=== PATIENT | female | born 1965 | race Caucasian/White ===

== ENCOUNTER 2016-12-10 11:21 | Observation (INO) ==
--- NOTE | 2016-12-10 11:45 | Emergency Department Note ---
Disposition Clinical Impression: Chest pain, Obesity, Family history of coronary artery disease, Hypertension, Diabetes, Hyperlipidemia, Anxiety Disposition: Admitted As Inpatient Condition: Fair Referrals: Kristel York MD [Primary Care Provider] - Forms: ED Satisfaction Letter General Adult HPI - General Chief complaint: ED Chest Pain Stated complaint: CP Time Seen by Provider: 12/10/16 11:44 Source: patient Limitations: no limitations - History of Present Illness HPI Narrative: 50-year-old female reports to the emergency department at the advice of her primary care physician regarding chest pain and shortness of breath. The patient reports she had chest pain which began last evening while walking. She called her primary care physician today and they recommended she come to the ED. The patient also reports she did not sleep much last night and had persistent chest pain last night. She describes a pressure-like sensation in the mid sternum which really does not radiate to much. There has been no vomiting or diarrhea no abdominal pain no fever trauma or rash. No falls or injuries. No leg swelling or pain no coughing up blood. The patient has no personal history of coronary disease DVT PE or cancer. She reports a remote stress test which was negative. She does describe history of diabetes hypertension hyperlipidemia, she is a nonsmoker. No major family history of early coronary artery disease. There has been no leg swelling or pain or coughing up blood. There is no reported syncope. The patient describes significant anxiety. There is no history of augustina depressive features homicidality or suicidality. There is no history of fever or cough. No trouble walking talking hearing seeing or speaking or confusion or convulsion. No other complaints or concerns. Onset (ago): day(s) Pain Scale: 2 - Related Data Allergies Allergy/AdvReac Type Severity Reaction Status Date / Time acetaminophen [From Vicodin] Allergy Hives Verified 12/10/16 11:30 hydrocodone [From Vicodin] Allergy Hives Verified 12/10/16 11:30 Sulfa (Sulfonamide AdvReac Vomiting Verified 12/10/16 11:30 Antibiotics) All systems ED: reviewed and negative except as stated. Past Medical History - Past Medical History Medical history: Reports: diabetes, GERD, hyperlipidemia, hypertension, other Psychiatric history: Reports: depression - Social History Smoking Status: Never smoker Smokeless Tobacco Status: No Alcohol use: Reports: none Drug use: Reports: none Physical Exam - General Limitations: no limitations General appearance: alert, anxious - Head Head exam: atraumatic, normocephalic, normal inspection - Eye Eye exam: Present: normal appearance, PERRL, EOMI. Absent: scleral icterus, conjunctival injection, miosis, mydriasis - ENT ENT exam: normal exam, normal oropharynx, mucous membranes moist, TM's normal bilaterally, normal external ear exam - Neck Neck exam: Present: normal inspection, full ROM, trachea midline. Absent: tenderness, meningismus - Chest Chest inspection: Present: normal inspection, symmetric chest wall rise. Absent : tenderness - Respiratory Respiratory exam: Present: normal lung sounds bilaterally. Absent: respiratory distress - Cardiovascular Cardiovascular exam: Present: regular rate, normal rhythm, normal heart sounds - Abdominal Exam Abdominal exam: Present: soft, Non-Tender. Absent: tenderness, distention, guarding, rebound, rigidity, pulsatile mass - Extremities Exam Extremities exam: Present: normal inspection, full ROM, normal capillary refill. Absent: tenderness, pedal edema, joint swelling, calf tenderness - Expanded Lower Extremity Exam Lower leg exam: Absent: Homans' sign - Back Exam Back exam: Present: normal inspection, full ROM. Absent: tenderness, CVA tenderness (R), CVA tenderness (L), vertebral tenderness - Neurological Exam Neurological exam: Present: alert, oriented X3, CN II-XII intact. Absent: motor sensory deficit - Psychiatric Psychiatric exam: Present: anxious - Skin Skin exam: Present: warm, dry, intact, normal color. Absent: rash, cyanosis, diaphoresis, erythema, pallor, mottled Course Course Narrative: The patient reports she took a long-acting insulin today and feels like her blood sugars dropping, I have ordered an Accu-Chek. Her initial glucose was in the 130s. Vital Signs Temperature 97.4 F L 12/10/16 11:26 Pulse Rate 87 12/10/16 11:26 Respiratory Rate 18 12/10/16 11:26 Blood Pressure 156/93 12/10/16 11:26 O2 Sat by Pulse Oximetry 98 12/10/16 11:26 Temperature 97.4 F L 12/10/16 11:26 Pulse Rate 79 12/10/16 14:35 Respiratory Rate 14 12/10/16 14:35 Blood Pressure 129/80 12/10/16 14:35 O2 Sat by Pulse Oximetry 97 12/10/16 14:35 Oxygen Delivery Oxygen Delivery Room Air Medical Decision Making - MDM Narrative Medical decision making narrative: The patient has been experiencing chest pain, which started with exertion last evening, she is somewhat obese, hypertensive, hyperlipidemic, diabetic, and has a family history of coronary artery disease. She has had some anxiety which may be contributory, but does have significant risk factors for acute ACS. She has not had a heart catheterization ever and had a remote negative stress test. Based on her chest pain, and risk factors and heart score, I felt it would be appropriate to consult the hospitalist for admission. Patient currently stable. - Lab Data Lab results reviewed: Yes I reviewed the patient's lab results. Result diagrams: 12/10/16 11:50 12/10/16 11:50 Lab Results 12/10/16 12/10/16 12/10/16 Range/Units 11:50 11:50 11:50 WBC 7.4 (4.3-11.1) K/mcL RBC 4.61 (3.82-4.97) M/mcL Hgb 12.0 (11.5-15.4) g/dL Hct 36.6 (35.3-44.9) % MCV 79.4 L (83.0-100.0) fL MCH 26.0 L (28.0-33.3) pg MCHC 32.8 (31.6-35.5) g/dL RDW 13.5 (11.5-14.5) % Plt Count 295 (140-400) K/mcL MPV 9.9 (9.4-12.4) fL Immature Gran % 0.7 (0-4) % Seg Neutrophils % 59.4 % Lymphocytes % 25.1 % Monocytes % 9.9 % Eosinophils % 4.5 % Basophils % 0.4 % Neutrophils # 4.4 (1.6-8.9) K/mcL Lymphocytes # 1.9 (0.6-4.6) K/mcL Monocytes # 0.7 (0.0-1.3) K/mcL Eosinophils # 0.3 (0.0-0.6) K/mcL Basophils # 0.0 (0.0-0.2) K/mcL PT 12.5 H (9.4-12.1) Seconds INR 1.2 APTT 37.0 H (26.0-36.0) Seconds Sodium 142 (136-145) mEq/L Potassium 3.9 (3.5-4.5) mEq/L Chloride 104 (98-109) mEq/L Carbon Dioxide 26 (19-29) mEq/L BUN 17 (7-20) mg/dL Creatinine 0.79 (0.57-1.11) mg/dL Est GFR ( Amer) > 60 (> 60) Est GFR (Non-Af Amer) > 60 (> 60) BUN/Creatinine Ratio 22 (6-26) Glucose 131 H (70-99) mg/dL Calculated Osmolality 297 (280-300) Calcium 9.6 (8.6-10.8) mg/dL Total Bilirubin 0.3 (0.2-1.2) mg/dL Direct Bilirubin 0.1 (0.0-0.5) mg/dL Indirect Bilirubin 0.2 (0.0-1.2) mg/dL AST 15 (5-34) Units/L ALT 24 (0-55) Units/L Alkaline Phosphatase 76 (38-126) Units/L Troponin I (0-0.03) ng/mL C-Reactive Protein 7 H (Less than 5) mg/L Serum Total Protein 6.9 (6.0-8.3) g/dL Albumin 3.7 (3.5-5.0) g/dL Globulin 3.2 (2.4-3.5) g/dL Albumin/Globulin Ratio 1.2 (1.1-2.2) Lipase 57 (8-78) Units/L 12/10/16 Range/Units 11:50 WBC (4.3-11.1) K/mcL RBC (3.82-4.97) M/mcL Hgb (11.5-15.4) g/dL Hct (35.3-44.9) % MCV (83.0-100.0) fL MCH (28.0-33.3) pg MCHC (31.6-35.5) g/dL RDW (11.5-14.5) % Plt Count (140-400) K/mcL MPV (9.4-12.4) fL Immature Gran % (0-4) % Seg Neutrophils % % Lymphocytes % % Monocytes % % Eosinophils % % Basophils % % Neutrophils # (1.6-8.9) K/mcL Lymphocytes # (0.6-4.6) K/mcL Monocytes # (0.0-1.3) K/mcL Eosinophils # (0.0-0.6) K/mcL Basophils # (0.0-0.2) K/mcL PT (9.4-12.1) Seconds INR APTT (26.0-36.0) Seconds Sodium (136-145) mEq/L Potassium (3.5-4.5) mEq/L Chloride (98-109) mEq/L Carbon Dioxide (19-29) mEq/L BUN (7-20) mg/dL Creatinine (0.57-1.11) mg/dL Est GFR ( Amer) (> 60) Est GFR (Non-Af Amer) (> 60) BUN/Creatinine Ratio (6-26) Glucose (70-99) mg/dL Calculated Osmolality (280-300) Calcium (8.6-10.8) mg/dL Total Bilirubin (0.2-1.2) mg/dL Direct Bilirubin (0.0-0.5) mg/dL Indirect Bilirubin (0.0-1.2) mg/dL AST (5-34) Units/L ALT (0-55) Units/L Alkaline Phosphatase (38-126) Units/L Troponin I 0.00 (0-0.03) ng/mL C-Reactive Protein (Less than 5) mg/L Serum Total Protein (6.0-8.3) g/dL Albumin (3.5-5.0) g/dL Globulin (2.4-3.5) g/dL Albumin/Globulin Ratio (1.1-2.2) Lipase (8-78) Units/L - Radiology Data Radiology results reviewed: Yes I reviewed the patient's radiology results.
[2016-12-10 12:06] LABS: Basophils % 0.4 %; Eosinophils # 0.3 K/mcL (0.0-0.6); Eosinophils % 4.5 %; Hematocrit 36.6 % (35.3-44.9); Immature Granulocytes % 0.7 % (0-4); Lymphocytes # 1.9 K/mcL (0.6-4.6); Lymphocytes % 25.1 %; Mean Corpuscular HGB Conc 32.8 g/dL (31.6-35.5); Mean Corpuscular Volume 79.4 fL (83.0-100.0); Mean Platelet Volume 9.9 fL (9.4-12.4); Monocytes # 0.7 K/mcL (0.0-1.3); Monocytes % 9.9 %; Neutrophils # 4.4 K/mcL (1.6-8.9); Platelet Count 295 K/mcL (140-400); Red Blood Count 4.61 M/mcL (3.82-4.97); Red Cell Distribution Width 13.5 % (11.5-14.5); Segmented Neutrophils % 59.4 %
[2016-12-10 12:10] LABS: INR 1.2; Prothrombin Time 12.5 Seconds (9.4-12.1)
[2016-12-10 12:23] LABS: Alanine Aminotransferase 24 Units/L (0-55); Albumin 3.7 g/dL (3.5-5.0); Albumin/Globulin Ratio 1.2 (1.1-2.2); Alkaline Phosphatase 76 Units/L (38-126); Aspartate Amino Transferase 15 Units/L (5-34); BUN/Creatinine Ratio 22 (6-26); Bilirubin,Direct 0.1 mg/dL (0.0-0.5); Bilirubin,Indirect 0.2 mg/dL (0.0-1.2); Bilirubin,Total 0.3 mg/dL (0.2-1.2); Blood Urea Nitrogen 17 mg/dL (7-20); C-Reactive Protein 7 mg/L (Less than 5); Calcium 9.6 mg/dL (8.6-10.8); Carbon Dioxide 26 mEq/L (19-29); Chloride 104 mEq/L (98-109); Globulin 3.2 g/dL (2.4-3.5); Glucose 131 mg/dL (70-99); Lipase 57 Units/L (8-78); Osmolality,Calculated 297 (280-300); Potassium 3.9 mEq/L (3.5-4.5); Sodium 142 mEq/L (136-145); Total Protein 6.9 g/dL (6.0-8.3); eGFR For African Americans > 60 (> 60); eGFR For Non-African Americans > 60 (> 60)
[2016-12-10] MEDS ORDERED: Aspirin 325 MG TABLET PO ONE (14:13)
[2016-12-10] MEDS ORDERED: Naloxone 0.4 MG/ML INJ IVP PRN (16:19)
[2016-12-10] MEDS ORDERED: D5% in Water 1,000 ML IV PRN (16:46)
[2016-12-10] MEDS ORDERED: Dextrose Gel 15 GM PO PRN ×2 (16:46)
[2016-12-10] MEDS ORDERED: *HR* Dextrose 50 % in Water (Syg) 50 ML SYRINGE IVP PRN (16:46)
--- NOTE | 2016-12-10 16:56 | Internal Med History&Physical ---
Date of Encounter: 12/10/16 Time of Encounter: 16:54 Assessment and Plan (1) Chest pain Current visit: Yes Status: Acute Patient with crushing chest pain accompanied by shortness of breath. Risk factors include HTN, HLD, type 2 diabetes. Initial troponin negative. EKG with no ischemic changes. Serial troponins for trend continuous monitoring specialist Plan for stress test and echocardiogram in the morning. Qualifiers: Chest pain type: precordial pain Qualified Code(s): R07.2 - Precordial pain (2) Type 2 diabetes mellitus Current visit: Yes Status: Acute Diabetic diet check blood sugar ACHS Continue home basal insulin dose of 30u detemir HS Nutritional dose of insulin 25u TIDWM plus sliding scale correction dose hypoglycemic protocol. 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 Howell is a 50 year old female with hypertension, hyperlipidemia, asthma , type 2 diabetes, who presented to the ED with chest pain. She reports she had chest pain and shortness of breath yesterday when walking on her lunch break , she sat down and rested and felt better after a few minutes. She then woke up this morning at 2am with chest pain, shortness of breath and nausea. She reports the pain felt like crushing pressure and radiated to her back, was constant and lasted a few hours. She called her PCP this morning who instructed her to go to the ED. She denies any palpitations, headache, Fever, chills, sweats, cough, vomiting, abdominal pain. Evaluation in the ED showed negative troponin of 0.0. EKG with NSR, CXR with no acute disease. On exam, she is alert and oriented, in no distress, lungs are clear bilaterally and heart has regular rate and rhythm. Past Med Surg Social Fam HX - Past Medical History Medical history: asthma, diabetes, GERD, hyperlipidemia, hypertension, other Psychiatric history: depression - Past Surgical History Surgical History: , KEV/BSO - Social History Smoking Status: Never smoker Smokeless Tobacco Status: No Alcohol use: none Drug use: none - Family History Mother Living Status: Still Living Hx Family Cardiac Disorders: Yes (hypertension) Father Living Status: Still Living Hx Family Cardiac Disorders: Yes Hx Family Endocrine Disorder: Yes (diabetes) Internal Medicine - H&P: Meds Albuterol Neb [Proventil Neb] 2.5 mg IH Q4-6H PRN 12/10/16 [History] Albuterol Sulfate [Albuterol Inhaler] 2 puff IH Q6H PRN 12/10/16 [History] Aspirin 81 mg PO DAILY 12/10/16 [History] BuPROPion XL (24 HR) [Wellbutrin XL] 450 mg PO DAILY 12/10/16 [History] Esomeprazole Magnesium [Nexium] 40 mg PO DAILY 12/10/16 [History] Gabapentin [Neurontin] 900 mg PO HS 12/10/16 [History] Gemfibrozil [Lopid] 600 mg PO BIDWM 12/10/16 [History] Hydrochlorothiazide 25 mg PO DAILY 12/10/16 [History] Insulin DETEMIR [Levemir Flextouch] 30 unit SQ HS 12/10/16 [History] Insulin LISPRO [Humalog Kwikpen U-100] 25 - 30 unit SQ TIDAC 12/10/16 [History] Losartan Potassium [Cozaar] 50 mg PO DAILY 12/10/16 [History] Metformin HCl [Glucophage] 1,000 mg PO BID 12/10/16 [History] Potassium Chloride [K-Tab ER] 20 meq PO DAILY 12/10/16 [History] Allergies acetaminophen [From Vicodin] Allergy (Verified 12/10/16 11:30) Hives hydrocodone [From Vicodin] Allergy (Verified 12/10/16 11:30) Hives ciprofloxacin [From Cipro] Adverse Reaction (Verified 12/10/16 15:30) Vomiting nitrofurantoin [From Macrobid] Adverse Reaction (Verified 12/10/16 15:30) Stomach Pain Sulfa (Sulfonamide Antibiotics) Adverse Reaction (Verified 12/10/16 11:30) Vomiting venlafaxine [From Effexor] Adverse Reaction (Verified 12/10/16 15:30) Sweating All Systems PM: A 10-system review of systems was performed and is negative for pertinent findings except as documented above in the HPI. - Constitutional Constitutional: no chills, no fever(s), no night sweats - EENT Eyes: no change in vision, no discharge, no pain, no photophobia Ears: no ear discharge, no ear pain, no tinnitus Nose, mouth and throat: no dysphagia, no nasal discharge, no neck pain, no sore throat - Cardiovascular Cardiovascular ROS IM: chest pain, dyspnea, no lightheadedness, no palpitations , no syncope - Respiratory Respiratory: dyspnea on exertion, no cough, no dyspnea, no wheezing, no excessive phlegm production - Gastrointestinal Gastrointestinal: nausea, no abdominal pain, no diarrhea, no hematemesis, no hematochezia, no melena, no vomiting - Genitourinary Genitourinary: no change in urinary stream, no dysuria, no flank pain, no hematuria - Musculoskeletal Musculoskeletal ROS IM: no numbness, no tingling - Integumentary Integumentary IM: no rash, no unusual bruising - Neurological Neurological ROS: no confusion, no convulsions, no focal weakness, no numbness, no tingling, no tremor(s) - Hematologic/Lymphatic Hematologic/Lymphatic: no easy bruising - Constitutional Vitals: Temp Pulse Resp BP Pulse Ox 97.5 F L 91 18 122/77 96 12/10/16 16:10 12/10/16 16:10 12/10/16 16:10 12/10/16 16:10 12/10/16 16:10 General appearance: Present: A&O X 3, no acute distress - Head Head exam: Present: atraumatic, normocephalic - Eye Eye exam: Present: PERRL, conjuntiva pink, sclera anicteric Pupils: Present: PERRL - Neck Neck exam general surgery: Present: supple, trachea midline. Absent: lymphadenopathy - Respiratory Respiratory exam: Present: CTAB. Absent: accessory muscle use, rales, rhonchi, wheezes - Cardiovascular Cardiovascular exam: Present: RRR, +S1, +S2. Absent: diastolic murmur, gallop, rubs, systolic murmur - GI/Abdominal GI/Abdominal exam: Present: normal bowel sounds, soft, no peritoneal signs. Absent: distended, tenderness - Extremities Exam Extremities exam: Present: warm, radial pulses palpable and symetrical. Absent : calf tenderness, cyanotic, pedal edema - Neurological Exam Neurological exam: Present: CN II-XII intact, oriented X3, no focal deficits. Absent: facial droop, speech deficit - Skin Skin exam: Present: dry, intact Internal Med - H&P Results - Labs CBC & Chem 7: 12/10/16 11:50 12/10/16 11:50 Labs: All Lab Results (24 Hours) 12/10/16 12/10/16 12/10/16 Range/Units 11:50 11:50 11:50 WBC 7.4 (4.3-11.1) K/mcL RBC 4.61 (3.82-4.97) M/mcL Hgb 12.0 (11.5-15.4) g/dL Hct 36.6 (35.3-44.9) % MCV 79.4 L (83.0-100.0) fL MCH 26.0 L (28.0-33.3) pg MCHC 32.8 (31.6-35.5) g/dL RDW 13.5 (11.5-14.5) % Plt Count 295 (140-400) K/mcL MPV 9.9 (9.4-12.4) fL Immature Gran % 0.7 (0-4) % Seg Neutrophils % 59.4 % Lymphocytes % 25.1 % Monocytes % 9.9 % Eosinophils % 4.5 % Basophils % 0.4 % Neutrophils # 4.4 (1.6-8.9) K/mcL Lymphocytes # 1.9 (0.6-4.6) K/mcL Monocytes # 0.7 (0.0-1.3) K/mcL Eosinophils # 0.3 (0.0-0.6) K/mcL Basophils # 0.0 (0.0-0.2) K/mcL PT 12.5 H (9.4-12.1) Seconds INR 1.2 APTT 37.0 H (26.0-36.0) Seconds D-Dimer (0-500) ng/mLFEU Sodium 142 (136-145) mEq/L Potassium 3.9 (3.5-4.5) mEq/L Chloride 104 (98-109) mEq/L Carbon Dioxide 26 (19-29) mEq/L BUN 17 (7-20) mg/dL Creatinine 0.79 (0.57-1.11) mg/dL Est GFR ( Amer) > 60 (> 60) Est GFR (Non-Af Amer) > 60 (> 60) BUN/Creatinine Ratio 22 (6-26) Glucose 131 H (70-99) mg/dL POC Glucose (58-89) Calculated Osmolality 297 (280-300) Calcium 9.6 (8.6-10.8) mg/dL Total Bilirubin 0.3 (0.2-1.2) mg/dL Direct Bilirubin 0.1 (0.0-0.5) mg/dL Indirect Bilirubin 0.2 (0.0-1.2) mg/dL AST 15 (5-34) Units/L ALT 24 (0-55) Units/L Alkaline Phosphatase 76 (38-126) Units/L Troponin I (0-0.03) ng/mL C-Reactive Protein 7 H (Less than 5) mg/L Serum Total Protein 6.9 (6.0-8.3) g/dL Albumin 3.7 (3.5-5.0) g/dL Globulin 3.2 (2.4-3.5) g/dL Albumin/Globulin Ratio 1.2 (1.1-2.2) Lipase 57 (8-78) Units/L 12/10/16 12/10/16 12/10/16 Range/Units 11:50 15:53 16:18 WBC (4.3-11.1) K/mcL RBC (3.82-4.97) M/mcL Hgb (11.5-15.4) g/dL Hct (35.3-44.9) % MCV (83.0-100.0) fL MCH (28.0-33.3) pg MCHC (31.6-35.5) g/dL RDW (11.5-14.5) % Plt Count (140-400) K/mcL MPV (9.4-12.4) fL Immature Gran % (0-4) % Seg Neutrophils % % Lymphocytes % % Monocytes % % Eosinophils % % Basophils % % Neutrophils # (1.6-8.9) K/mcL Lymphocytes # (0.6-4.6) K/mcL Monocytes # (0.0-1.3) K/mcL Eosinophils # (0.0-0.6) K/mcL Basophils # (0.0-0.2) K/mcL PT (9.4-12.1) Seconds INR APTT (26.0-36.0) Seconds D-Dimer < 215 (0-500) ng/mLFEU Sodium (136-145) mEq/L Potassium (3.5-4.5) mEq/L Chloride (98-109) mEq/L Carbon Dioxide (19-29) mEq/L BUN (7-20) mg/dL Creatinine (0.57-1.11) mg/dL Est GFR ( Amer) (> 60) Est GFR (Non-Af Amer) (> 60) BUN/Creatinine Ratio (6-26) Glucose (70-99) mg/dL POC Glucose 166 H (58-89) Calculated Osmolality (280-300) Calcium (8.6-10.8) mg/dL Total Bilirubin (0.2-1.2) mg/dL Direct Bilirubin (0.0-0.5) mg/dL Indirect Bilirubin (0.0-1.2) mg/dL AST (5-34) Units/L ALT (0-55) Units/L Alkaline Phosphatase (38-126) Units/L Troponin I 0.00 (0-0.03) ng/mL C-Reactive Protein (Less than 5) mg/L Serum Total Protein (6.0-8.3) g/dL Albumin (3.5-5.0) g/dL Globulin (2.4-3.5) g/dL Albumin/Globulin Ratio (1.1-2.2) Lipase (8-78) Units/L
[2016-12-10] MEDS: Insulin LISPRO 300 UNITS/3 ML VIAL SQ SCH (17:19)
[2016-12-10] MEDS: *HR* Heparin 5,000 UNIT/ML VIAL SQ SCH (19:28)
[2016-12-10] MEDS ORDERED: Insulin DETEMIR 100 UNIT/ML X5UNITS SQ SCH (21:00)
[2016-12-10] MEDS ORDERED: Gabapentin 300 MG CAPSULE PO SCH (21:00)
--- NOTE | 2016-12-10 22:22 | ECHO - Doppler Report ---
Echocardiogram Name: Mia Howell Date of Study: 12/10/2016 Date: 1965 Ht: 64.0 in Medical Record#: [id number] Age: 50 Wt: 194.0 lb Gender: Female BSA: 1.93 Order #: [id number] Location: [facility] Room #: [id number] Reading Physician: Syed Cope MD, [facility] Supervisory Lifeguard: Kindra Ferrera RDCS Ordering Physician: Jane Shi CNP Primary Physician: Kristel York MD Indications: Chest pain Impressions: Normal left ventricular size and systolic function, LVEF 60%. Mild left ventricular diastolic dysfunction. Normal right ventricular size and function. No significant valvular dysfunction. No evidence of pulmonary hypertension. Linear echodensities are noted in the aortic arch. Visual appearance is most consistent with artifact, however, aortic pathology such as dissection cannot be entirely excluded on this study. Recommend dedicated imaging of the thoracic aorta with CTA to further evaluate. Findings were discussed with the on-call wafer fab technician, Dr. Randal Chatman. Dr. Chatman said he would contact the primary service and obtain a CTA to further evaluate. Left Ventricular Wall Motion: Rest Echo Findings All wall segments showed normal motion. Findings: Study Quality * Suboptimal echo windows. ECG Findings * Normal sinus rhythm. Left Ventricle * Normal left ventricular size and systolic function, LVEF 60%. * Normal LV wall thickness. * Mild left ventricular diastolic dysfunction. Right Ventricle * Normal right ventricular size and function. Left Atrium * Normal left atrial size. Right Atrium * Normal right atrial size. Aorta * Normally sized aortic root. * Linear echodensities are noted in the aortic arch. Visual appearance is most consistent with artifact, however, aortic pathology such as dissection cannot be entirely excluded on this study. Pericardium * There is no pericardial effusion present. IVC * The IVC is not well evaluated. Aortic Valve * Aortic valve not well visualized. Appears trileaflet. * No aortic stenosis. * No aortic regurgitation. Mitral Valve * Normal mitral valve structure. * No mitral stenosis. * No mitral regurgitation. Tricuspid Valve * Tricuspid valve not well visualized. * No tricuspid stenosis. * Trace tricuspid regurgitation. * No evidence of pulmonary hypertension. Pulmonic Valve * Pulmonic valve not well visualized. * No pulmonic stenosis. * Trace pulmonic regurgitation. History Hypertension Diabetes Hypercholesteremia Family History of CAD Measurements: BP: 122/ 77 2D Normal Values RVIDd: 2.87 cm IVSd: .78 cm 0.6 - 1.0 cm LVIDd: 5.25 cm 3.7 - 5.6 cm LVPWd: .92 cm 0.6 - 1.1 cm LVIDs: 3.60 cm 1.5 - 3.6 cm AO: 2.90 cm < 4.0 cm %FS: 31.40 cm >25 % LA volume: 33 Mitral Valve Peak E:.80 m/sec Peak A:1.00 m/sec E/A Ratio:0.8 Tricuspid Valve TV Regurg Peak Grad: 18.00mmHg TV Regurg Peak Nirmal: 2.11m/sec Updated by Syed Cope MD, [facility] on 12/10/2016 10:13:09 PM electronically signed on 12/10/2016 10:18:52 PM with status of Final Wall Motion Todd: 1=Normal, 2=Hypokinesis, 3=Akinesis, 4=Dyskinesis, 5=Aneurysmal, 6=Hyperkinetic, X=Not Visualized (Blank)=Missing
[2016-12-10] MEDS ORDERED: Ondansetron 4 MG/2 ML VIAL IVP PRN (22:35)
--- NOTE | 2016-12-10 22:49 | Event Note ---
Date of Encounter: 12/10/16 Time of Encounter: 22:40 On-call Hospitalist note: Dr Chatman from Cardiology called to notify that the pt had abnormal echo and recommended CTA chest to rule out aortic dissection. R/chayo vitals - stable. I have ordered the test stat - will follow the result.
[2016-12-11 00:32] LABS: Basophils % 0.5 %; Eosinophils # 0.4 K/mcL (0.0-0.6); Eosinophils % 5.4 %; Hematocrit 34.9 % (35.3-44.9); Hemoglobin 11.4 g/dL (11.5-15.4); Immature Granulocytes % 0.7 % (0-4); Lymphocytes # 2.8 K/mcL (0.6-4.6); Lymphocytes % 36.1 %; Mean Corpuscular HGB Conc 32.7 g/dL (31.6-35.5); Mean Corpuscular Hemoglobin 25.8 pg (28.0-33.3); Mean Platelet Volume 9.9 fL (9.4-12.4); Monocytes # 0.6 K/mcL (0.0-1.3); Monocytes % 8.1 %; Neutrophils # 3.7 K/mcL (1.6-8.9); Platelet Count 275 K/mcL (140-400); Red Blood Count 4.42 M/mcL (3.82-4.97); Red Cell Distribution Width 13.6 % (11.5-14.5); Segmented Neutrophils % 49.2 %
[2016-12-11 00:47] LABS: BUN/Creatinine Ratio 20 (6-26); Blood Urea Nitrogen 16 mg/dL (7-20); Calcium 9.1 mg/dL (8.6-10.8); Carbon Dioxide 26 mEq/L (19-29); Chloride 98 mEq/L (98-109); Glucose 190 mg/dL (70-99); Osmolality,Calculated 288 (280-300); Potassium 3.7 mEq/L (3.5-4.5); Sodium 136 mEq/L (136-145); eGFR For African Americans > 60 (> 60); eGFR For Non-African Americans > 60 (> 60)
[2016-12-11] MEDS: *HR* Heparin 5,000 UNIT/ML VIAL SQ SCH (06:22)
[2016-12-11] MEDS ORDERED: BuPROPion XL (24 HR) 150 MG TABLET PO SCH (09:00)
[2016-12-11] MEDS ORDERED: Aspirin 81 MG TAB.CHEW PO SCH (09:00)
[2016-12-11] MEDS ORDERED: hydroCHLOROthiazide 25 MG TABLET PO SCH (09:00)
[2016-12-11] MEDS: Insulin LISPRO 300 UNITS/3 ML VIAL SQ SCH ×4 (10:08→13:13)
--- NOTE | 2016-12-11 10:22 | Nuclear Medicine Stress Report ---
Exercise Nuclear Stress Name: Mia Howell Date of Study: 12/11/2016 Date: 1965 Ht: 64.0 in Medical Record#: [id number] Age: 50 Wt: 195.0 lb Gender: Female Order #: [id number] Location: [facility] IP Room: [facility] Supervising Provider: Augustine Diaz CNP Reading Physician: Issac Knutson DO, FACC, JONES GRAVES Ordering Physician: Estefania Armstrong CNP Primary Care Physician: Kristel York MD Stress Technologist: Marge Carter, ELECTRIC SERVICEMAN, CCT, CPFT Plate Corrector: Padilal Lord Indications: Chest Pain Impression: Exercise ECG is negative for ischemia. The exercise capacity was good. Gated EF = 75%. Perfusion imaging was negative for ischemia or infarct. History: Hypertension Diabetes Hypercholesteremia Stress Test Summary: Stress Test Type: Treadmill Protocol: Mauro Baseline Information: Initial Heart Rate: 92 Blood Pressure: 112/76 Stress Information: Stress Time: 7 min 18 sec Test Terminated Due to (primary): Fatigue Maximum Blood Pressure: 168/84 Maximum Heart Rate: 150 Percent Maximum Heart Rate Achieved: 88 Double Product: [id number] METS Reached: 10.1 Symptoms: Fatigue Nuclear Summary: SPECT myocardial perfusion imaging using Tc99m Sestamibi given intravenously was performed at rest and following cardiac stress testing. The resting images were obtained following initial dose of 10.4 mCi. Following stress an additional dose of 32.9 mCi was given at peak exercise or 30 seconds post regadenoson infusion. Medication Given: Time Medication Dose Units Route Findings: Stress Note * Resting ECG demonstrated normal sinus rhythm. * No baseline arrhythmias were noted. * Exercise ECG is negative for ischemia. * No arrhythmias were noted during stress. * Patient had no chest pain during stress. * The exercise capacity was good. Hemodynamic responses * Normal hemodynamic responses to exercise. Study Quality * Study quality is average. Gated EF % * Gated EF = 75%. Left Ventricle * The left ventricle is not dilated. LVEDV = 83 mL. * Normal wall motion. Anterior Perfusion Rest * The mid anteroseptal segment shows a mild reduction in perfusion. Compared to stress, this defect appears worse on rest imaging and wall motion is normal. These findings are consistent with artifact. Anterior Perfusion Stress * The mid anteroseptal segment shows a mild reduction in perfusion. TID * No evidence of transient ischemic dilatation. TID ratio = 1.07. Lung Uptake * There is no evidence of increase lung uptake. Updated by Issac Knutson DO, ANÍBAL, STAR, JONES on 12/11/2016 10:17:09 AM electronically signed on 12/11/2016 10:18:15 AM with status of Final
[2016-12-11 11:18] VITALS: BP 107/68
--- NOTE | 2016-12-11 11:56 | Discharge Summary ---
Date of Encounter: 12/11/16 Time of Encounter: 11:55 - Discharge Diagnosis (1) Chest pain Priority: Primary Status: Acute Comments: Atypical chest pain Possibly secondary to GERD EKG non-ischemic CXR no acute processes ECHO was unremarkable except for some artifacts on the aorta which CTA ruled out any acute aortic processes Stress test showed EF 75% with no ischemic changes Patient is stable to go home on her home meds I have educated her about lifestyle changes I have also educated her about alarm features for GERD and to follow up with PCP for possible referral to GI She verbalized understanding Qualifiers: Chest pain type: precordial pain Qualified Code(s): R07.2 - Precordial pain (2) Hyperlipidemia Priority: Secondary Status: Chronic Qualifiers: Hyperlipidemia type: unspecified Qualified Code(s): E78.5 - Hyperlipidemia , unspecified (3) Hypertension Priority: Secondary Status: Chronic Qualifiers: Hypertension type: essential hypertension Qualified Code(s): I10 - Essential (primary) hypertension (4) Obesity Priority: Secondary Status: Chronic Qualifiers: Obesity type: unspecified obesity type Obesity severity: non-morbid Qualified Code(s): E66.9 - Obesity, unspecified (5) Type 2 diabetes mellitus Priority: Secondary Status: Chronic Qualifiers: Diabetes mellitus complication status: without complication Diabetes mellitus nursing home insulin use: with nursing home use Qualified Code(s): E11.9 - Type 2 diabetes mellitus without complications; Z79.4 - FDC (current) use of insulin - Discharge Medications Home Medications: Albuterol Neb [Proventil Neb] 2.5 mg IH Q4-6H PRN 12/10/16 [History] Albuterol Sulfate [Albuterol Inhaler] 2 puff IH Q6H PRN 12/10/16 [History] Aspirin 81 mg PO DAILY 12/10/16 [History] BuPROPion XL (24 HR) [Wellbutrin Xl] 450 mg PO DAILY 12/10/16 [History] Esomeprazole Magnesium [Nexium] 40 mg PO DAILY 12/10/16 [History] Gabapentin [Neurontin] 900 mg PO HS 12/10/16 [History] Gemfibrozil [Lopid] 600 mg PO BIDWM 12/10/16 [History] Hydrochlorothiazide 25 mg PO DAILY 12/10/16 [History] Insulin DETEMIR [Levemir Flextouch] 30 unit SQ HS 12/10/16 [History] Insulin LISPRO [Humalog Kwikpen U-100] 25 - 30 unit SQ TIDAC 12/10/16 [History] Losartan Potassium [Cozaar] 50 mg PO DAILY 12/10/16 [History] Metformin HCl [Glucophage] 1,000 mg PO BID 12/10/16 [History] Potassium Chloride [K-Tab ER] 20 meq PO DAILY 12/10/16 [History] Allergies/Adverse Reactions: Allergies acetaminophen [From Vicodin] Allergy (Verified 12/10/16 11:30) Hives hydrocodone [From Vicodin] Allergy (Verified 12/10/16 11:30) Hives ciprofloxacin [From Cipro] Adverse Reaction (Verified 12/10/16 15:30) Vomiting nitrofurantoin [From Macrobid] Adverse Reaction (Verified 12/10/16 15:30) Stomach Pain Sulfa (Sulfonamide Antibiotics) Adverse Reaction (Verified 12/10/16 11:30) Vomiting venlafaxine [From Effexor] Adverse Reaction (Verified 12/10/16 15:30) Sweating Procedures/tests Complete & Pending: Procedures Performed prior 72 hours Category Date Time Status CT angio chest [CT] Stat Cat Scan 12/10/16 22:35 Completed NM duane perf SPECT multi [NM] Routine Exams 12/11/16 06:20 Taken EV echocardiogram Routine Y 12/10/16 17:20 Completed SP exercise nuclear stress Routine Y 12/11/16 08:00 Completed Date of admission: 12/10/16 15:25 Primary care physician: Kristel Lopez Discharging clinician: Florentino Garcia Anticipated date of discharge: 12/11/16 - Patient Status Disposition: Home, Self-Care Condition: Good Functional capacity at discharge: independent ambulation Overall status at discharge: patient is back to baseline - Discharge Instructions Follow Up With: Kristel York MD [Primary Care Provider] - - Diet and Activity Activity: resume usual activities as tolerated Diet: diabetic diet, low fat, low cholesterol, low salt diet Interval History: See below Hospital course: Ms. Howell is a 50 year old female PMH of DM, HTN, GERD placed on observation for chest pain to rule out ACS Her symptoms have resolved and her work up is as documented She is stable for discharge home - Time Spent with Patient Total time spent providing and/or coordinating discharge services: - Constitutional Vitals: Temp Pulse Resp BP Pulse Ox 97.6 F 78 16 107/68 94 L 12/11/16 11:15 12/11/16 11:15 12/11/16 11:15 12/11/16 11:15 12/11/16 11:15 General appearance: Present: A&O X 3, pleasant, no acute distress - Head Head exam: Present: atraumatic, normocephalic - Eye Eye exam: Present: PERRL, conjuntiva pink, sclera anicteric Pupils: Present: PERRL - Neck Neck exam general surgery: Present: supple, trachea midline. Absent: lymphadenopathy - Respiratory Respiratory exam: Present: CTAB. Absent: accessory muscle use, rales, rhonchi, wheezes - Cardiovascular Cardiovascular exam: Present: RRR, +S1, +S2. Absent: diastolic murmur, gallop, rubs, systolic murmur - GI/Abdominal GI/Abdominal exam: Present: normal bowel sounds, soft, no peritoneal signs. Absent: distended, tenderness - Extremities Exam Extremities exam: Present: warm, radial pulses palpable and symetrical. Absent : calf tenderness, cyanotic, pedal edema - Neurological Exam Neurological exam: Present: CN II-XII intact, oriented X3, no focal deficits. Absent: pronater drift, facial droop, speech deficit - Skin Skin exam: Present: dry, intact
--- NOTE | 2016-12-11 16:15 | Electrocardiograph Report ---
[facility] Test Date: 2016-12-10 Pat Name: Mia Howell Department: [id number] Room: 3B37 Gender: F [employer]: : [id number] Requested By: Jamil Washington Order Number: [id number] Reading MD: Issac Knutson DO Measurements Intervals [place] Rate: 80 P: 50 FL: 177 QRS: -25 QRSD: 92 T: 63 QT: 371 QTc: 407 Interpretive Statements SINUS RHYTHM POSSIBLE LEFT VENTRICULAR HYPERTROPHY ST-T CHANGES NONSPECIFIC Electronically Signed On 12-11-16 16:14:24 EST by Issac Kntuson DO
== END 2016-12-11 14:21 | disposition home or self-care (01) ==
LOC: 3BNU 11:21 → EMEROO 11:21 → SUATTDRO 15:25 → 3BNU 15:43
PROVIDERS: ADMIT Internal Medicine; ATTEND Internal Medicine